=== PATIENT | female | born 1950 | race Caucasian/White ===

== ENCOUNTER 2017-08-30 06:56 | Emergency (ER) | payer MEDICARE, OTHER ==
[2017-08-30] MEDS ORDERED: predniSONE 20 MG TAB ONE (07:27)
== END 2017-08-30 07:33 | disposition home or self-care (01) ==
LOC: SCSER 06:56
DX: L72.9 Follicular cyst of the skin and subcutaneous tissue, unspecified (principal); F17.210 Nicotine dependence, cigarettes, uncomplicated; E03.9 Hypothyroidism, unspecified; E78.5 Hyperlipidemia, unspecified; Z79.899 Other long term (current) drug therapy
CPT/HCPCS: 99282; J7506